=== PATIENT | female | born 1955 | race Caucasian/White ===

== ENCOUNTER 2017-08-20 10:46 | Outpatient (CLI) | payer OTHER ==
--- NOTE | 2017-08-21 12:49 | Mammography Report ---
DIGITAL SCREENING MAMMOGRAM: 08/20/2017 CLINICAL INDICATION: A 61-year-old with history of late childbearing for screening. The patient reports having had previous mammograms in [place], but cannot recall what facility per formed the examination. If records in your office indicate where these were performed, we would be h appy to try to obtain them for direct comparison. Otherwise, this will serve as a new baseline. TECHNIQUE: Routine CC and MLO projections were obtained of the breasts. FINDINGS: The breasts demonstrate heterogeneously dense fibroglandular parenchyma bilaterally. A fe w punctate, typically benign calcifications are present. No suspicious masses, clustered microcalcif ications, or regions of architectural distortion are identified. IMPRESSION: BENIGN FINDINGS. RECOMMENDATION: Routine annual screening unless otherwise clinically indicated. BIRADS CATEGORY 2 - BENIGN FINDINGS. STANDARD QUALIFYING STATEMENTS 1. This examination was reviewed with the aid of Computer-Aided Detection (CAD). 2. A negative or benign imaging report should not delay biopsy if clinically suspicious findings are present. Consider surgical consultation if warranted. More than 5% of cancers are not identified by i maging. 3. Dense breasts may obscure an underlying neoplasm. JOB #: [id number] EXT JOB #:[id number]
== END 2017-08-20 10:47 | disposition home or self-care (01) ==
LOC: DI.S 10:46
PROVIDERS: ATTEND Family Medicine
DX: Z12.31 Encounter for screening mammogram for malignant neoplasm of breast (principal)
CPT/HCPCS: 77067

== ENCOUNTER 2017-08-20 11:02 | Outpatient (CLI) | payer OTHER ==
--- NOTE | 2017-08-20 14:34 | XRAY Report ---
TWO VIEW LEFT CALCANEUS: 08/20/2017 CLINICAL INDICATION: Heel pain. FINDINGS: Frontal and lateral views of the left calcaneus demonstrate plantar calcaneal spurring. Th ere is no evidence of fracture. The joint spaces are unremarkable. IMPRESSION: PLANTAR CALCANEAL SPURRING. JOB #: [id number] EXT JOB #:[id number]
== END 2017-08-20 11:03 | disposition home or self-care (01) ==
LOC: DI.S 11:02
PROVIDERS: ATTEND Family Medicine
DX: M77.32 Calcaneal spur, left foot (principal)

== ENCOUNTER 2017-08-24 08:04 | Outpatient (CLI) | payer OTHER ==
--- NOTE | 2017-08-24 10:48 | Ultrasound Report ---
PELVIC ULTRASOUND: 08/24/2017 CLINICAL INDICATION: Postmenopausal bleeding. TECHNIQUE: Transabdominal pelvic ultrasound performed for global evaluation. Transvaginal pelvic ul trasound performed for detailed evaluation. Real-time scanning performed and static images obtained. FINDINGS: The uterus is anteverted, measuring 8.5 x 5.0 x 3.9 cm. The endometrial echo complex is t hickened, measuring 8 mm. There is a calcified fundal subserosal leiomyoma measuring 3.5 cm, and a p edunculated posterior subserosal leiomyoma measuring 5.9 cm. The right ovary measures 2.5 x 1.7 x 1.6 cm, and contains a 9-mm echogenic central focus. The left o vary measures 2.8 x 2.6 x 1.8 cm, and is unremarkable. No free fluid is present. IMPRESSION: THICKENED ENDOMETRIUM. LEIOMYOMAS, WITH A PEDUNCULATED 5.9 CM LEIOMYOMA IN THE CUL-DE-S AC. SMALL ECHOGENIC NODULE IN THE RIGHT OVARY, LIKELY REPRESENTING DYSTROPHIC CALCIFICATION. JOB #: [id number] EXT JOB #:[id number]
== END 2017-08-24 08:05 | disposition home or self-care (01) ==
LOC: DI 08:04
PROVIDERS: ATTEND Family Medicine
DX: R93.8 Abnormal findings on diagnostic imaging of other specified body structures (principal); D25.2 Subserosal leiomyoma of uterus; N83.9 Noninflammatory disorder of ovary, fallopian tube and broad ligament, unspecified
CPT/HCPCS: 76830; 76856

== ENCOUNTER 2018-08-10 17:56 | Emergency (ER) | payer OTHER ==
--- NOTE | 2018-08-10 18:42 | XRAY Report ---
Reason: Trauma Procedure Date: 08/10/2018 Accession Number: [id number] / [id number] Procedure: XR - Wrist 4 View LT CPT Code: FULL RESULT: EXAM: LEFT WRIST RADIOGRAPHY EXAM DATE: 08/10/2018 06:28 PM. CLINICAL HISTORY: Trauma. COMPARISON: None. TECHNIQUE: 4 views. FINDINGS: Bones: There is a nondisplaced fracture of the distal radius metaphysis/epiphysis with intra-articular extension. No additional fracture. Joints: Normal. No subluxation. Soft Tissues: Soft tissue swelling. IMPRESSION: Nondisplaced distal radius fracture. RADIA
--- NOTE | 2018-08-10 20:13 | XRAY Report ---
Reason: Trauma Procedure Date: 08/10/2018 Accession Number: [id number] / [id number] Procedure: XR - Hand 3 View LT CPT Code: FULL RESULT: EXAM: LEFT HAND RADIOGRAPHY EXAM DATE: 08/10/2018 07:55 PM. CLINICAL HISTORY: Trauma. COMPARISON: WRIST 4 VIEW LT 08/10/2018 6:18 PM. TECHNIQUE: 3 views. FINDINGS: Bones: No fracture or focal bony lesion. Joints: No evidence of dislocation. Soft Tissues: No unexpected soft tissue findings. IMPRESSION: No evidence of hand fracture or dislocation. Wrist findings are detailed separately. RADIA
[2018-08-10] MEDS ORDERED: IBUPROFEN 600 MG TABLET PO STA (20:32)
--- NOTE | 2018-08-10 20:46 | ED Physician Documentation ---
PD HPI UPPER EXT INJURY - Stated complaint Stated Complaint: L WRIST INJ/FALL - Chief complaint Chief Complaint: Ext Problem - History obtained from History obtained from: Patient - History of Present Illness Location: Left, Wrist, Hand Type of injury: Fall Where injury occurred: Home Timing - onset: How many hours ago (1) Timing - duration: Days (1) Timing - details: Abrupt onset, Still present Pain level max: 7 Pain level now: 7 Improved by: Rest Worsened by: Moving Associated symptoms: Swelling. No: Weakness, Numbness, Tingling, Discolored Contributing factors: No: Anticoagulated Similar symptoms before: Has not had sx before Recently seen: Not recently seen - Additonal information Additional information: 62-year-old female with no past medical or surgical history here with complain of left wrist pain after falling from a short stepladder while she was cleaning her house.Patient stated her hand was outstretched to protect the fall. Patient is right-hand dominant. Review of Systems Ten Systems: 10 systems reviewed and negative Constitutional: denies: Fever Cardiac: denies: Chest pain / pressure GI: denies: Abdominal Pain Musculoskeletal: reports: Extremity pain. denies: Neck pain, Back pain, Joint pain PD PAST MEDICAL HISTORY - Past Medical History Past Medical History: Yes - Past Surgical History Past Surgical History: Yes General: Other - Present Medications Home Medications: Ambulatory Orders Medication Instructions Recorded Confirmed Ibuprofen [Motrin] 600 mg PO Q6H PRN #30 tab 08/10/18 - Allergies Allergies/Adverse Reactions: Allergies Allergy/AdvReac Type Severity Reaction Status Date / Time No Known Drug Allergies Allergy Verified 08/10/18 18:05 - Social History Does the pt smoke?: No Smoking Status: Never smoker Does the pt drink ETOH?: Yes Does the pt have substance abuse?: Yes - Immunizations Immunizations are current?: Yes PD ED PE NORMAL - Vitals Vital signs reviewed: Yes - General General: Alert and oriented X 3, No acute distress, Well developed/nourished - HEENT HEENT: Moist mucous membranes - Neck Neck: Supple, no meningeal sign, No bony TTP - Cardiac Cardiac: RRR, Strong equal pulses - Respiratory Respiratory: No respiratory distress - Abdomen Abdomen: Soft, Non tender - Derm Derm: Normal color, Warm and dry - Extremities Extremities: No edema, Other (Left wrist radial aspect with mild tenderness to palpation. Left hand dorsal area below the thumb with ecchymosis and mild tenderness. Left hand full range of motion. +2 pulses. Capillary refill less than 2 seconds. Sensation intact. Strength 5/5.) - Neuro Neuro: Alert and oriented X 3, No motor deficit, No sensory deficit - Psych Psych: Normal mood, Normal affect Results - Vitals Vitals: Vital Signs - 24 hr 08/10/18 18:01 Temperature 36.8 C Heart Rate 84 Respiratory 16 Rate Blood Pressure 149/88 H O2 Saturation 98 Oxygen O2 Source Room air PD MEDICAL DECISION MAKING - ED course Complexity details: re-evaluated patient (2024Patient informed of x-ray results and plan of splinting. Stated once pain medication high dose Motrin only. 2119Evaluated radial gutter which is in place patient able to move her fingers. Capillary refill less than 2 seconds. We will discharged on Motrin and referral to orthopedic.), considered differential (Contusion, sprain, fracture, dislocation), d/w patient, d/w family Departure - Departure Disposition: 01 Home, Self Care Clinical Impression: Wrist fracture, left Qualifiers: Encounter type: initial encounter Fracture type: closed Qualified Code(s): S62.102A - Fracture of unspecified carpal bone, left wrist, initial encounter for closed fracture Condition: Stable Instructions: ED Fx Wrist General Follow-Up: Rosalba Rosas MD [Provider Admit Priv/Credential] - Prescriptions: Ibuprofen [Motrin] 600 mg PO Q6H PRN #30 tab PRN Reason: Pain Comments: Keep the splint on. Elevate. Ice pack tonight and tomorrow. Take the Motrin a s prescribed. Call the orthopedic doctor on Sunday for appointment this week. If worse return to the emergency room.
[2018-08-10 21:42] VITALS: BP 164/88
== END 2018-08-10 21:41 | disposition home or self-care (01) ==
LOC: ED 17:56
DX: S62.102A Fracture of unspecified carpal bone, left wrist, initial encounter for closed fracture (principal); W11.XXXA Fall on and from ladder, initial encounter; Y93.E9 Activity, other interior property and clothing maintenance; Y92.009 Unspecified place in unspecified non-institutional (private) residence as the place of occurrence of the external cause
CPT/HCPCS: 29125; 73110; 73130; 99283; A9270

== ENCOUNTER 2019-04-21 09:33 | Outpatient (CLI) | payer OTHER ==
--- NOTE | 2019-04-21 11:07 | Mammography Report ---
Reason: RT BREAST/AXILLA LUMP Procedure Date: 04/21/2019 Accession Number: [id number] / [id number] Procedure: LEVI - Diagnostic Dig Bilat CPT Code: FULL RESULT: EXAM: Diagnostic Dig Bilat DATE: 04/21/2019 10:32 AM CLINICAL HISTORY: Right breast/axilla lump. Diagnostic examination. TECHNIQUE: (B) - Bilateral CC and MLO views were obtained. Right spot MLO images are obtained. Focused right breast ultrasound is performed. COMPARISON: 08/20/2017. PARENCHYMAL PATTERN: (D) - The breast(s) demonstrate(s) heterogeneously dense fibroglandular parenchyma. FINDINGS: Corresponding to the palpable marker is a well-circumscribed 5 mm nodule which is only partially included in the [id number] on the obtained imaging. Physical examination is most compatible with ingrown hair or sebaceous cyst. A focused right breast ultrasound is performed for additional characterization. This demonstrates a immediately subcutaneous hypodense well-circumscribed lesion with internal echoes and increased through transmission with a clear tract to the skin surface, obstructed gland, most consistent with typically benign findings of a sebaceous cyst. There are no suspicious masses, calcifications, or areas of distortion. IMPRESSION: Benign findings. BI-RADS category 2. RECOMMENDATION: (ANNUAL) - Recommend routine annual screening mammography. BI-RADS CATEGORY: (2) - Benign Findings. STANDARD QUALIFYING STATEMENTS: 1. This examination was not reviewed with the aid of Computer-Aided Detection (CAD). 2. A negative or benign imaging report should not preclude biopsy if clinically suspicious findings are present. 3. Dense breasts may obscure an underlying neoplasm. 4. This examination was reviewed with the aid of 3D breast imaging (tomosynthesis).
== END 2019-04-21 09:34 | disposition home or self-care (01) ==
LOC: DI 09:33
PROVIDERS: ATTEND Nurse Practitioner Family
DX: N63.10 Unspecified lump in the right breast, unspecified quadrant (principal)
CPT/HCPCS: 76642; 77062; 77066

== ENCOUNTER 2020-05-10 13:13 | Outpatient (CLI) | payer OTHER ==
--- NOTE | 2020-05-10 16:32 | Ultrasound Report ---
PROCEDURE: Pelvic w/Transvaginal INDICATIONS: POSTMENOPAUSAL BLEEDING TECHNIQUE: Real-time scanning was performed of the pelvic organs, with image documentation. Additional endovagi nal scanning was necessary due to incomplete visualization of the adnexal and endometrial structures by transabdominal scanning. COMPARISON: Pelvic ultrasound 08/24/2017 FINDINGS: Transabdominal scanning: Limited scanning through the kidneys shows no hydronephrosis. No pathologi c free abdominal or pelvic fluid. Endovaginal scanning: Uterus: Uterus is normal in size at 9.4 x 5.7 x 6.9 cm. The endometrium measures 26 mm in combined thickness, compared to 8 mm on prior exam. Within the fundal anterior location subserosal location th ere is a 5.4 x 4.7 x 4.7 focus of heterogeneous echogenicity previously measuring 3.2 x 3.5 x 3.3 cm. In the post material region there is a pedunculated focus similar in appearance measuring 5.9 x 4.4 x 3.3 cm compared to 5.9 x 4.4 x 3.5 cm. Ovaries: Right ovary measures 25 x 19 x 24 mm. Left ovary measures 24 x 15 x 15 mm. IMPRESSION: 1. Heterogeneous low side within the uterus with the fundal focus increased in size. Overall appearan ce is suggestive of fibroids. 2. Thickened endometrium as above, much greater than expected for post menopausal state. Neoplasm can not be excluded. Further [employer] follow-up is recommended. Reviewed by: Niki Rogers MD on 05/10/2020 4:30 PM PDT Approved by: Niki Rogers MD on 05/10/2020 4:30 PM PDT Station ID: [id number]
== END 2020-05-10 13:14 | disposition home or self-care (01) ==
LOC: DI 13:13
PROVIDERS: ATTEND Nurse Practitioner Family
DX: R93.89 Abnormal findings on diagnostic imaging of other specified body structures (principal)
CPT/HCPCS: 76830; 76856

== ENCOUNTER 2020-05-13 10:39 | Outpatient (CLI) | payer OTHER ==
[2020-05-13 11:07] LABS: HB2 TOTAL 14.3 g/dL; HEMOGLOBIN A1C 0.62 g/dL; HEMOGLOBIN A1C % 6.1 % (4.6-6.2)
== END 2020-05-13 10:40 | disposition home or self-care (01) ==
LOC: LAB 10:39
PROVIDERS: ATTEND Obstetrics & Gynecology
DX: N85.00 Endometrial hyperplasia, unspecified (principal)
CPT/HCPCS: 36415; 83036

== ENCOUNTER 2020-05-29 16:41 | Outpatient (CLI) | payer OTHER | END 2020-05-29 16:42 | disposition home or self-care (01) | LOC: LAB 16:41 | PROVIDERS: ATTEND Obstetrics & Gynecology | DX: N85.02 Endometrial intraepithelial neoplasia [EIN] (principal) | CPT/HCPCS: 88305 ==

== ENCOUNTER 2020-07-12 10:07 | Outpatient (CLI) | payer OTHER ==
[2020-07-12 10:49] LABS: BASOPHILS % (AUTO) 0.5 %; EOSINOPHILS # (AUTO) 0.1 10^3/uL (0.0-0.7); EOSINOPHILS % (AUTO) 1.9 %; HGB - HEMOGLOBIN 13.6 g/dL (12.0-16.0); LYMPHOCYTES # (AUTO) 2.1 10^3/uL (1.5-3.5); LYMPHOCYTES % (AUTO) 27.4 %; MEAN CORPUSCULAR HEMOGLOBIN 30.2 pg (27.0-31.0); MEAN CORPUSCULAR HGB CONC 33.3 g/dL (32.0-36.0); MEAN CORPUSCULAR VOLUME 90.9 fL (81.0-99.0); MEAN PLATELET VOLUME 8.7 fL (7.9-10.8); MONOCYTES # (AUTO) 0.5 10^3/uL (0.0-1.0); MONOCYTES % (AUTO) 6.1 %; NEUTROPHILS # (AUTO) 4.8 10^3/uL (1.5-6.6); NEUTROPHILS % (AUTO) 63.3 %; PLT - PLATELET COUNT 296 10^3/uL (130-450); RED CELL DISTRIBUTION WIDTH 13.1 % (12.0-15.0); WHITE BLOOD COUNT 7.6 x10^3/uL (4.8-10.8)
[2020-07-12 11:03] LABS: ALBUMIN/GLOBULIN RATIO 1.2 (1.0-2.2); BILIRUBIN,TOTAL 0.6 mg/dL (0.2-1.0); CALCIUM 9.5 mg/dL (8.5-10.3); CREATININE 0.8 mg/dL (0.4-1.0); TOTAL PROTEIN 7.4 g/dL (6.7-8.2)
== END 2020-07-12 10:08 | disposition home or self-care (01) ==
LOC: LAB 10:07
PROVIDERS: ATTEND Obstetrics & Gynecology
DX: Z20.828 Contact with and (suspected) exposure to other viral communicable diseases (principal); N95.0 Postmenopausal bleeding; N85.2 Hypertrophy of uterus
CPT/HCPCS: 36415; 80053; 85025

== ENCOUNTER 2020-07-15 06:39 | Day surgery (SDC) | payer OTHER ==
[~2020-07-15 06:39] MED LIST: CEFAZOLIN SODIUM IN 0.9 % NACL 2 GM/100 ML BAG IV ONE
[2020-07-15] MEDS ORDERED: SILVER NITRATE APPLICATOR TOP ONE (07:00)
[2020-07-15] MEDS ORDERED: BUPIVACAINE 0.25%-EPI 1:200000 PF 30 ML VIAL ONE (07:00)
[2020-07-15] MEDS ORDERED: LACTATED RINGERS 1,000 ML IV ONE ×2 (07:16→08:50)
[2020-07-15] MEDS ORDERED: ATROPINE ABBOJECT 1 MG/10 ML SYRINGE IVP PRN (07:25)
[2020-07-15] MEDS ORDERED: ePHEDrine 50 MG/ML VIAL IVP PRN (07:25)
[2020-07-15] MEDS ORDERED: NALOXONE 0.4 MG/ML VIAL IVP PRN (07:25)
[2020-07-15] MEDS ORDERED: MORPHINE 2 MG/ML CARPUJECT IVP PRN (07:25)
[2020-07-15] MEDS ORDERED: ONDANSETRON 4 MG/2 ML VIAL IVP PRN ×2 (07:25→09:02)
[2020-07-15] MEDS ORDERED: fentaNYL 100 MCG/2 ML VIAL IVP PRN (07:25)
[2020-07-15] MEDS ORDERED: METOCLOPRAMIDE 10 MG/2 ML VIAL IVP PRN (07:25)
[2020-07-15] MEDS ORDERED: HYDROmorphone 0.5 MG/0.5 ML SYRINGE IVP PRN (07:25)
--- NOTE | 2020-07-15 07:25 | ANESTHESIA ---
Pre-Anesthesia VS, & Labs - Diagnosis post menopausal bleeding, thickened endometrium - Procedure myosure hysteroscopy/D&C Vital Signs: Temp Pulse Resp BP Pulse Ox 36.2 C L 90 18 164/83 H 96 07/15/20 06:40 07/15/20 06:40 07/15/20 06:40 07/15/20 06:40 07/15/20 06:40 Height: 5 ft 5 in Weight (kg): 100.3 kg Body Mass Index: 36.8 BMI Classification: Obese - NPO >8 hours - Is Patient ?: No - Lab Results Current Lab Results: Laboratory Tests 07/15/20 07:12: POC Whole Bld Glucose 116 H Lab results reviewed: Yes Home Medications and Allergies Home Medications: Ambulatory Orders Loratadine [Claritin] 10 mg PO DAILY 07/07/20 Naproxen Sodium [Aleve] 220 mg PO ONCE PRN 07/07/20 Loratadine [Claritin] 10 mg PO DAILY 07/07/20 Naproxen Sodium [Aleve] 220 mg PO ONCE PRN 07/07/20 Allergies/Adverse Reactions: Allergies Allergy/AdvReac Type Severity Reaction Status Date / Time No Known Drug Allergies Allergy Verified 08/10/18 18:05 Anes History & Medical History - Anesthetic History Anesthesia Complications: reports: No previous complications Family history of Anesthesia Complications: Denies Family history of Malignant Hyperthermia: Denies - Medical History Cardiovascular: reports: High cholesterol Pulmonary: reports: None Gastrointestinal: reports: GERD (controlled w meds) Urinary: reports: None Musculoskeletal: reports: Chronic back pain Endocrine/Autoimmune: reports: None, Other ("pre-diabetes" per pt. glucose 119 this am) Skin: reports: None Smoking Status: Never smoker Psychosocial: reports: No issues indicated History of Cancer?: No Other Past Medical History: oral surgery under sedation - Surgical History General: Colonoscopy Exam General: Alert, Oriented x3, Cooperative Dental: WNL Mouth Openin Fingerbreadth Neck Mobility: Normal Mallampati classification: II Thyromental Distance: 4-6 cm Respiratory: Lungs clear, Normal breath sounds, No respiratory distress Cardiovascular: Regular rate Neurological: Normal speech Mental/Cognitive Status: Alert/Oriented X3, Normal for patient Cognitive Status: Within normal limits Plan Anesthesia Type: General Consent for Procedure(s) Verified and Reviewed: Yes Code Status: Attempt Resuscitation ASA classification: 2-Mild systemic disease Is this case an emergency?: No
[2020-07-15] MEDS ORDERED: fentaNYL 100 MCG/2 ML VIAL IVP ONE (07:30)
[2020-07-15] MEDS ORDERED: DEXAMETHASONE 4 MG/ML VIAL IVP ONE (07:30)
[2020-07-15] MEDS ORDERED: PROPOFOL 200 MG/20 ML VIAL IVP ONE (07:30)
[2020-07-15] MEDS ORDERED: ONDANSETRON 4 MG/2 ML VIAL IVP ONE (07:30)
[2020-07-15] MEDS ORDERED: LIDOCAINE-MPF 2% 5 ML VIAL IM ONE (07:30)
[2020-07-15] MEDS ORDERED: LACTATED RINGERS 1,000 ML IV SCH (08:00)
[2020-07-15] MEDS ORDERED: BUPIVACAINE 0.25%-EPI 1:200000 PF 30 ML VIAL SUBQ ONE ×2 (08:08→08:22)
--- NOTE | 2020-07-15 08:55 | OPERATIVE REPORT ---
Operative Report - General Procedure Date: 07/15/20 Planned Procedure: thickened endometrium 2.5 cm Procedure Performed: Dilitation, Hysterscopy with removal of endometria polyp Post Op Diagnosis: Endometrial polyp - Procedure Note Primary Surgeon: Ricky Chandler MD Anesthesia Provider: Gian Mojica MD Anesthesia Technique: General LMA Pathology: endometrial polyp IV Fluids (mL): 600 Estimated Blood Loss (mL): 5 Complications: none
[2020-07-15] MEDS ORDERED: DOXYCYCLINE 100 MG TABLET PO STA (09:02)
[2020-07-15] MEDS ORDERED: oxyCODONE 5 MG TABLET PO PRN (09:02)
[2020-07-15] MEDS ORDERED: LORazepam 2 MG/ML VIAL IVP PRN (09:02)
[2020-07-15] MEDS ORDERED: KETOROLAC 30 MG/ML VIAL IVP PRN (09:03)
[2020-07-15] MEDS ORDERED: KETOROLAC 30 MG/ML VIAL ONE (09:12)
[2020-07-15 09:52] VITALS: BP 127/71
--- NOTE | 2020-07-15 11:08 | ANESTHESIA POST OP EVALUATION ---
Anesthesia Post Eval - Post Anesthesia Eval Vitals: Last Vital Signs Temp 36.2 C L 07/15/20 09:50 Pulse 76 07/15/20 09:50 Resp 16 07/15/20 09:50 BP 127/71 07/15/20 09:50 Pulse Ox 98 07/15/20 09:50 CV Function Including HR & BP: positive: Stable Pain Control: positive: Satisfactory Nausea & Vomiting: positive: Negative Mental Status: positive: Baseline Respiratory Status: Airway Patent Hydration Status: Satisfactory Anesthesia Complications: positive: None
--- NOTE | 2020-07-15 12:26 | OPERATIVE REPORT ---
DATE OF SERVICE: 07/15/2020 Physician: Ricky Chandler MD PREOPERATIVE DIAGNOSIS: A 2.5 cm thickened endometrium; endometrial biopsy with evidence of hyperpla radha. POSTOPERATIVE DIAGNOSIS: Endometrial polyp. PROCEDURE PERFORMED: Hysteroscopy with resection of endometrial polyp. SURGEON: Ricky Chandler MD ANESTHESIOLOGIST: Rigoberto Mojica MD ANESTHESIA: General via LMA. ESTIMATED BLOOD LOSS: 5 mL. IV FLUIDS: 600 mL. DEFICIT: 530 mL. OPERATIVE FINDINGS: Upon entering the endometrial cavity, the cavity showed evidence of a very large endometrial polyp. Upon resection this showed the endometrial cavity to be clear at this point. Th e uterus sounded to 8 cm. DESCRIPTION OF PROCEDURE:. Following adequate general anesthesia via LMA, the patient was placed in the dorsal lithotomy position. Pelvic examination under anesthesia was unrewarding secondary to abdo guzman wall thickness. At this point, she was prepped and draped in the usual fashion. A timeout was performed. A speculum was placed in the vagina, there was some difficulty, was able to finally visu erick the cervix, this was grasped with a single-tooth tenaculum. Uterus was then sounded to 8 cm, a t this point dilated to 8 mm. The hysteroscope was then placed and the entire endometrial cavity chayo eared to be filled with a polyp. At this point, a MyoSure LITE was used to resect the entire polyp a ll the way to the uterine wall. The endometrial cavity appeared to be clear. Both ostia were visual ized. At this point, the procedure was ended. The patient tolerated the procedure well and was take n to recovery in stable condition. Sponge and needle counts were correct. TD: 07/15/2020 09:11
== END 2020-07-15 06:40 | disposition home or self-care (01) ==
LOC: SDS 06:39
PROVIDERS: ATTEND Obstetrics & Gynecology
PROC: 0UB98ZZ Excision of Uterus, Via Natural or Artificial Opening Endoscopic (ICD-10-PCS; principal; 2020-07-15 07:30)
DX: N84.0 Polyp of corpus uteri (principal); K21.9 Gastro-esophageal reflux disease without esophagitis; Z87.891 Personal history of nicotine dependence; Z79.899 Other long term (current) drug therapy; Z86.79 Personal history of other diseases of the circulatory system
CPT/HCPCS: 58558; J0690; J7120

== ENCOUNTER 2020-09-16 18:23 | Outpatient (CLI) | payer OTHER | END 2020-09-16 18:24 | disposition home or self-care (01) | LOC: COV 18:23 | PROVIDERS: ATTEND Obstetrics & Gynecology | DX: Z01.812 Encounter for preprocedural laboratory examination (principal); N85.02 Endometrial intraepithelial neoplasia [EIN]; Z20.828 Contact with and (suspected) exposure to other viral communicable diseases ==

== ENCOUNTER 2020-09-20 09:45 | Outpatient (CLI) | payer OTHER | END 2020-09-20 09:46 | disposition home or self-care (01) | LOC: LAB 09:45 | PROVIDERS: ATTEND Obstetrics & Gynecology | DX: Z01.818 Encounter for other preprocedural examination (principal); N85.02 Endometrial intraepithelial neoplasia [EIN] | CPT/HCPCS: 36415; 86850; 86900; 86901; 86920; 93005 ==

== ENCOUNTER 2020-09-22 06:26 | Day surgery (SDC) | payer OTHER ==
[~2020-09-22 06:26] MED LIST changes: +ACETAMINOPHEN 1,000 MG/100 ML 100 ML IV ONE; -CEFAZOLIN SODIUM IN 0.9 % NACL 2 GM/100 ML BAG IV ONE; +CELECOXIB 100 MG CAPSULE PO ONE; +GABAPENTIN 400 MG CAPSULE ONE; +ceFAZolin 2 GM/50 ML 2 GM/50 ML BAG IV ONE
[2020-09-22] MEDS ORDERED: LACTATED RINGERS 1,000 ML IV ONE (06:50)
[2020-09-22] MEDS ORDERED: MIDAZOLAM 2 MG/2 ML VIAL ONE (07:06)
[2020-09-22] MEDS ORDERED: KETAMINE 500 MG/10 ML VIAL ONE (07:06)
[2020-09-22] MEDS ORDERED: fentaNYL 100 MCG/2 ML VIAL ONE ×2 (07:06→08:46)
[2020-09-22] MEDS ORDERED: LIDOCAINE-MPF 2% 5 ML VIAL ONE ×3 (07:08→10:22)
[2020-09-22] MEDS ORDERED: DEXAMETHASONE 10 MG/ML VIAL ONE (07:08)
[2020-09-22] MEDS ORDERED: ePHEDrine 50 MG/ML VIAL IVP ONE (07:09)
[2020-09-22] MEDS ORDERED: MAGNESIUM SULFATE 1 GM/2 ML VIAL ONE (07:09)
[2020-09-22] MEDS ORDERED: SODIUM CHLORIDE 0.9% 10 ML ONE (07:09)
[2020-09-22] MEDS ORDERED: KETOROLAC 30 MG/ML VIAL ONE (07:09)
[2020-09-22] MEDS ORDERED: SUGAMMADEX 200 MG/2 ML VIAL IVP ONE (07:09)
[2020-09-22] MEDS ORDERED: ONDANSETRON 4 MG/2 ML VIAL ONE (07:10)
--- NOTE | 2020-09-22 07:12 | ANESTHESIA ---
Pre-Anesthesia VS, & Labs - Diagnosis endometrial hyperplagia - Procedure lap assisted vaginal hysterectomy, possible salphigectomy, anterioposterior repair Vital Signs: Temp Pulse Resp BP Pulse Ox 36.4 C L 82 18 149/86 H 98 09/22/20 06:30 09/22/20 06:30 09/22/20 06:30 09/22/20 06:30 09/22/20 06:30 Height: 5 ft 5 in Weight (kg): 101.9 kg Body Mass Index: 37.3 BMI Classification: Obese - NPO >8 hours - Is Patient ?: No - Lab Results Current Lab Results: Laboratory Tests 09/22/20 06:46: POC Whole Bld Glucose 118 H Home Medications and Allergies Home Medications: Ambulatory Orders Calcium Carbonate [Tums (Calcium Carbonate 500mg)] 500 mg PO Q4-6H PRN 09/10/20 Losartan Potassium 100 mg PO DAILY 09/10/20 Loratadine [Claritin] 10 mg PO DAILY 07/07/20 Naproxen Sodium [Aleve] 220 mg PO ONCE PRN 07/07/20 Calcium Carbonate [Tums (Calcium Carbonate 500mg)] 500 mg PO Q4-6H PRN 09/10/20 Losartan Potassium 100 mg PO DAILY 09/10/20 Allergies/Adverse Reactions: Allergies Allergy/AdvReac Type Severity Reaction Status Date / Time No Known Drug Allergies Allergy Verified 08/10/18 18:05 Anes History & Medical History - Anesthetic History Anesthesia Complications: reports: No previous complications - Medical History Cardiovascular: reports: Hypertension, High cholesterol Pulmonary: reports: None Gastrointestinal: reports: GERD Urinary: reports: None Musculoskeletal: reports: Chronic back pain Endocrine/Autoimmune: reports: Other Skin: reports: None Smoking Status: Never smoker - Surgical History General: Colonoscopy Gynecologic: Dilation and currettage, Other Exam General: Alert Dental: WNL Neck Mobility: Normal Mallampati classification: III Thyromental Distance: greater than 6 cm Respiratory: Lungs clear Cardiovascular: Regular rate Plan Anesthesia Type: General Consent for Procedure(s) Verified and Reviewed: Yes Code Status: Attempt Resuscitation ASA classification: 2-Mild systemic disease Is this case an emergency?: No
[2020-09-22] MEDS ORDERED: ROCURONIUM 50 MG/5 ML VIAL ONE (07:13)
[2020-09-22] MEDS ORDERED: PROPOFOL 500 MG/50 ML 500 MG/50 ML VIAL ONE ×3 (07:16→10:17)
[2020-09-22] MEDS ORDERED: PHENAZOPYRIDINE 100 MG TABLET PO ONE (07:42)
[2020-09-22] MEDS ORDERED: BUPIVACAINE 0.25% PF 30 ML VIAL ONE (07:45)
[2020-09-22] MEDS ORDERED: BUPIVACAINE 0.5%-EPI 1:200000 PF 30 ML VIAL ONE ×2 (07:45→07:58)
[2020-09-22] MEDS ORDERED: BUPIVACAINE 0.5% PF 30 ML VIAL ONE (07:45)
[2020-09-22] MEDS ORDERED: LIDOCAINE 2% URO-JET 5 ML SYRINGE UR ONE (07:46)
[2020-09-22] MEDS ORDERED: ESTROGENS, CONJUGATED CREAM 30 GM TUBE ONE (07:46)
[2020-09-22] MEDS ORDERED: PHENAZOPYRIDINE 100 MG TABLET PO SCH (08:00)
[2020-09-22] MEDS ORDERED: BUPIVACAINE 0.5% PF 30 ML VIAL SUBQ ONE (08:31)
[2020-09-22] MEDS ORDERED: BUPIVACAINE 0.5% PF 30 ML VIAL INFIL ONE ×2 (08:35→12:39)
[2020-09-22] MEDS ORDERED: LABETALOL 5 MG/1 ML 20 ML MDV ONE (09:43)
[2020-09-22] MEDS ORDERED: HYDROmorphone 1 MG/ML CARPUJECT ONE (10:55)
[2020-09-22] MEDS ORDERED: PROPOFOL 200 MG/20 ML VIAL IVP ONE ×3 (11:32→12:45)
[2020-09-22] MEDS ORDERED: ESTROGENS, CONJUGATED CREAM 30 GM TUBE VG ONE ×2 (12:05)
[2020-09-22] MEDS ORDERED: ceFAZolin 1 GM VIAL ONE ×2 (12:59)
[2020-09-22] MEDS ORDERED: ACETAMINOPHEN 1,000 MG/100 ML 100 ML IV ONE (13:08)
[2020-09-22] MEDS ORDERED: LACTATED RINGERS 400 ML IV ONE (13:37)
[2020-09-22] MEDS ORDERED: LACTATED RINGERS 600 ML IV ONE (13:46)
[2020-09-22] MEDS ORDERED: ONDANSETRON 4 MG/2 ML VIAL IVP PRN ×2 (13:50→14:07)
[2020-09-22] MEDS ORDERED: LORazepam 2 MG/ML VIAL IVP PRN (13:50)
[2020-09-22] MEDS ORDERED: oxyCODONE 5 MG TABLET PO PRN (13:50)
[2020-09-22] MEDS ORDERED: HYDROmorphone 0.5 MG/0.5 ML SYRINGE IVP PRN ×2 (13:50→14:07)
--- NOTE | 2020-09-22 14:05 | OPERATIVE REPORT ---
Operative Report - General Procedure Date: 09/22/20 Planned Procedure: TLH BSO, A&P Cysto Pre-Op Diagnosis: ENDOMETRIAL HYPERPALSIA WITHOUT ATYPIA, CYSTOCELE AND RECTOCELE, FIBROID UT Procedure Performed: SAME Post Op Diagnosis: SAME - Procedure Note Primary Surgeon: GURU MIRANDA MD Secondary Surgeon: MICHELLE SPARROW MD Anesthesia Technique: General ET tube Pathology: UTERUS WITH BOTH TUBES AND OVARIES. PELVIC WASHINGS IV Fluids (mL): 2,700 Estimated Blood Loss (mL): 200 Urine Output (mL): 600 Findings: NODULARITY ON THE RIGHT OVARY
[2020-09-22] MEDS ORDERED: ePHEDrine 50 MG/ML VIAL IVP PRN (14:07)
[2020-09-22] MEDS ORDERED: fentaNYL 100 MCG/2 ML VIAL IVP PRN (14:07)
[2020-09-22] MEDS ORDERED: NALOXONE 0.4 MG/ML VIAL IVP PRN (14:07)
[2020-09-22] MEDS ORDERED: METOCLOPRAMIDE 10 MG/2 ML VIAL IVP PRN (14:07)
[2020-09-22] MEDS ORDERED: ATROPINE ABBOJECT 1 MG/10 ML SYRINGE IVP PRN (14:07)
[2020-09-22] MEDS ORDERED: MORPHINE 2 MG/ML CARPUJECT IVP PRN (14:07)
[2020-09-22] MEDS ORDERED: LACTATED RINGERS 1,000 ML IV SCH (15:00)
--- NOTE | 2020-09-22 15:01 | ANESTHESIA POST OP EVALUATION ---
Anesthesia Post Eval - Post Anesthesia Eval Vitals: Last Vital Signs Temp 36.4 C L 09/22/20 14:55 Pulse 94 09/22/20 14:55 Resp 13 09/22/20 14:55 BP 120/63 09/22/20 14:55 Pulse Ox 97 09/22/20 14:55 CV Function Including HR & BP: positive: Stable Pain Control: positive: Satisfactory Nausea & Vomiting: positive: Negative Mental Status: positive: Patient Participates Respiratory Status: Airway Patent Hydration Status: Satisfactory Anesthesia Complications: positive: None
[2020-09-22] MEDS ORDERED: LACTATED RINGERS 950 ML IV ONE (15:19)
[2020-09-22] MEDS: PANTOPRAZOLE 40 MG TABLET PO SCH (16:46)
[2020-09-22] MEDS: ACETAMINOPHEN 500 MG TABLET PO SCH ×2 (16:46→21:49)
--- NOTE | 2020-09-22 16:51 | OPERATIVE REPORT ---
DATE OF SERVICE: 09/22/2020 Physician: Ricky Chandler MD PREOPERATIVE DIAGNOSES 1. Endometrial hyperplasia without atypia. 2. Cystocele, and symptomatic rectocele. 3. Fibroid uterus. POSTOPERATIVE DIAGNOSES 1. Endometrial hyperplasia without atypia. 2. Cystocele, and symptomatic rectocele. 3. Fibroid uterus. PROCEDURES PERFORMED: Total laparoscopic hysterectomy with bilateral salpingo- oophorectomy, pelvic washings, and anterior-posterior repair with cystoscopy. SURGEON: Ricky Chandler MD PIPE FITTER AMMONIA: Kelly Joseph MD ANESTHESIA: General via endotracheal tube. ANESTHESIA PROVIDER: Daksha Green. IV FLUIDS: 2700 mL. ESTIMATED BLOOD LOSS: 200 mL. URINE OUTPUT: 600 mL. FINDINGS: Upon entering the abdominal cavity, there was evidence of adhesions to the colon and the left pelvic sidewall. The tube on the left hand side appeared without disease. The right ovary showed evidence of multiple excrescences on the external portion of the ovary. The right tube appeared to be normal. She had large fibroids in the uterus. She had one left parametrial fibroid. She had a mild cystocele, but a rather large rectocele. OPERATIVE PROCEDURE: Following adequate endotracheal anesthesia, the patient was placed in the dorsal lithotomy position in [facility]. Pelvic examination was performed in which the cervix felt somewhat small. With her previous hysteroscopy it was very difficult to get a hold of her cervix, as it resided high in the pelvic cavity. At this point, she was prepped and draped in the usual fashion. A timeout was performed. A speculum was then placed in the vagina. The cervix was visualized with some difficulty. At this point, it was grasped with a single-tooth tenaculum and was dilated to size 7 mm and then a 3 cm icing coater uterine manipulator was placed in the cervix. Both balloons were insufflated. The tenon machine operator's gloves were changed and then a stab wound was made in the subumbilical area with a #11 blade following local anesthesia with 0.5% Marcaine. At this point, a trocar was placed atraumatically and then 2 trocars were placed, both in the left and right lower quadrants. These were done following local anesthesia with 0.5% Marcaine with epinephrine as well as a #10 blade. The pelvis was inspected. There was no evidence of any injury at insertion site. The tubes and ovaries were inspected. The left ovary appeared to be unremarkable. The right ovary was somewhat concerning with the nodularity on the surface. At this point, it was irrigated and aspirated for cytology. Then, utilizing LigaSure, the infundibulopelvic ligament was cauterized, and divided. The ovary and tube were removed in total. The incision in the right lower quadrant was extended and an 11 mm port was introduced. An EndoCatch bag was introduced, and the right adnexa was placed in the EndoCatch bag. Care was taken to minimize any distribution of the potential cells. This was then brought through the abdominal wall intact. At this point, this was sent separately for pathologic evaluation. The procedure was continued. The anterior leaf of the broad ligament on the right-hand side was opened. The round ligament was doubly cauterized and transected with the LigaSure. This was carried down to the internal os of the cervix. The posterior leaf of the broad ligament was also cauterized and transected with the LigaSure. The uterine vessels were cauterized, but not transected. Attention was turned to the left hand-side and, because the bowel was on that pelvic sidewall, the broad ligament was opened anteriorly with division of the round ligament and then dissected down into the retroperitoneal space. The ureter was localized, identified, and then noted to be out of the operative field. At this point, the infundibulopelvic ligament was cauterized and transected with the LigaSure; this was carried down to the posterior leaf of the broad ligament. Care was taken to try and stay as close to the uterus as possible to minimize injury to the ureter. A fibroid was encountered in the lower uterine segment, which appeared to come off of the uterus, a little above the cervix. This was dissected out utilizing the LigaSure as well as Harmonic scalpel. The fibroid was grasped with a laparoscopic single-tooth tenaculum and manipulated to free it from its attaching structures. It was then amputated from the uterus. There was some oozing from the amputation site. The uterine vessels were then cauterized and transected on the left-hand side. Care was taken to stay as close to the uterus as possible. This helped with some of the bleeding that was occurring from the left side of the uterus. A bladder flap was developed, and this was pushed off the lower uterine segment. The uterine vessels on the right-hand side were then cauterized and transected. Care was taken to bring them away from the anvil of the icing coater. The Harmonic scalpel was then used to enter the anterior vagina and then brought around the right-hand side of the uterus to the posterior uterus. This was carried as far as possible and approached the uterosacral ligament on the left-hand side. At this point, Dr. Joseph, opened the vagina on the left-hand side with the Harmonic scalpel. The uterus was then brought out through the incision. The fibroid, which was attached to the left-hand side, was also brought out through the vagina. The area was inspected. No active bleeding was noted. At this point, the apex of the vagina was closed using a running stitch of V-Loc suture. The area was inspected, there was little to no bleeding. At this point, Surgicel was then placed on the incision sites. The area appeared to be dry at this time. At this point, the right lower quadrant trocar site was closed utilizing a Gonzalo-Tino, and there was evidence of good approximation of the incision. Attention was turned to the pelvis. Cystoscopy was performed. There was evidence of good exuberant flow of urine through both ureteral orifices. The anterior-posterior repair was then commenced. Because the vagina resided high in the pelvic cavity, it was desired to start about 2 cm from the urethra with the skin incision vertical and then undermining with Metzenbaum scissors. Two sutures of 0 Vicryl were then used to plicate the vesicovaginal fascia, and then the vagina was then closed utilizing ystwhx-ak-ikcayd of 2-0 Vicryl. Good hemostasis was observed. At this point, an incision was made over the perineum. The perineum was noted to be fairly tight, so it was decided not to take a wedge out. The posterior vaginal mucosa was injected with 0.5% Marcaine with epinephrine, and then Metzenbaum scissors were used to undermine as well as divide the posterior vagina in the midline. The edges were grasped with Allis- Adairs. The rectum was pushed free of the posterior vaginal mucosa all the way to the lateral sandhu and then sutures of 0 Vicryl were then used to plicate the vesicovaginal fascia. This showed evidence of a good closure. There was some oozing that was noted. This eventually was taken care of by closing the posterior rectovaginal fascia. The excess vaginal mucosa was trimmed and then closed utilizing mymbty-ln-hohygl of 2-0 Vicryl. The repair appeared to be sufficient at this time, a rectal examination was performed to ensure that there were no sutures which penetrated the rectal mucosa, none were palpated. The tenon machine operator's gloves were changed and following this, the vaginal packing was utilized to tamponade the anterior and posterior vaginal mucosal areas. The cystoscopy was repeated. There was evidence of excellent urine flow through both ureteral orifices. There was no evidence of sutures through the bladder mucosa. The patient tolerated the procedure well and was taken to recovery in stable condition. Sponge and needle counts were correct. Throughout the entire procedure Dr Joseph was instrumental in the performance of the hysterectomy. TD: 09/22/2020 14:31 j MARTINA
[2020-09-22] MEDS: KETOROLAC 15 MG/ML VIAL IVP PRN (19:20)
[2020-09-22] MEDS: DOCUSATE SODIUM 100 MG CAPSULE PO SCH (19:52)
[2020-09-23] MEDS: KETOROLAC 15 MG/ML VIAL IVP PRN ×2 (04:28→12:19)
[2020-09-23] MEDS: PANTOPRAZOLE 40 MG TABLET PO SCH (06:18)
[2020-09-23] MEDS: ACETAMINOPHEN 500 MG TABLET PO SCH (06:20)
[2020-09-23] MEDS: DOCUSATE SODIUM 100 MG CAPSULE PO SCH (08:31)
[2020-09-23] MEDS ORDERED: LORATADINE 10 MG TABLET PO SCH (09:00)
[2020-09-23 12:12] VITALS: BP 142/68
== END 2020-09-23 13:45 | disposition home or self-care (01) ==
LOC: SDS 06:26 → MS2 15:13 → SDS 09-23 13:45
PROVIDERS: ATTEND Obstetrics & Gynecology
PROC: 0UT7FZZ Resection of Bilateral Fallopian Tubes, Via Natural or Artificial Opening With Percutaneous Endoscopic Assistance (ICD-10-PCS; 2020-09-22)
PROC: 0UT9FZZ Resection of Uterus, Via Natural or Artificial Opening With Percutaneous Endoscopic Assistance (ICD-10-PCS; principal; 2020-09-22 07:30)
PROC: 0UT2FZZ Resection of Bilateral Ovaries, Via Natural or Artificial Opening With Percutaneous Endoscopic Assistance (ICD-10-PCS; 2020-09-22 07:30)
DX: D25.1 Intramural leiomyoma of uterus (principal); N84.0 Polyp of corpus uteri; N80.0 Endometriosis of uterus; N83.8 Other noninflammatory disorders of ovary, fallopian tube and broad ligament; D27.0 Benign neoplasm of right ovary; N88.8 Other specified noninflammatory disorders of cervix uteri; K62.3 Rectal prolapse; N81.10 Cystocele, unspecified; I10 Essential (primary) hypertension; K21.9 Gastro-esophageal reflux disease without esophagitis; E78.00 Pure hypercholesterolemia, unspecified; G89.29 Other chronic pain; M54.9 Dorsalgia, unspecified; E66.9 Obesity, unspecified; Z68.37 Body mass index [BMI] 37.0-37.9, adult; Z87.891 Personal history of nicotine dependence
CPT/HCPCS: 57260; 58552; A9270; J0131; J0690; J1170; J7120

== ENCOUNTER 2020-11-17 07:32 | Outpatient (CLI) | payer OTHER ==
--- NOTE | 2020-11-17 08:57 | Ultrasound Report ---
PROCEDURE: Abdomen Limited INDICATIONS: ALT LEVEL RAISED TECHNIQUE: Real-time focused scanning was performed of the abdomen, with image documentation. COMPARISON: None FINDINGS: Multiple gallstones are present in the gallbladder, the largest of which measures 1.3 cm i n diameter. No gallbladder wall thickening or pain on examination. Diffuse increased echogenicity of the liver likely represents hepatic steatosis. No dilated ducts. Common bile duct measures 5 mm. Common hepatic duct measures 2.5 mm. Visualized portions of the pancreas are unremarkable. No right hydronephrosis. Right kidney measures 11.6 cm. IMPRESSION: 1. Cholelithiasis without evidence of acute cholecystitis. 2. Hepatic steatosis. Reviewed by: Jorden Groves MD on 11/17/2020 8:56 AM PST Approved by: Jorden Groves MD on 11/17/2020 8:56 AM PST Station ID: [id number]
== END 2020-11-17 07:33 | disposition home or self-care (01) ==
LOC: DI 07:32
PROVIDERS: ATTEND Nurse Practitioner Family
DX: R74.01 Elevation of levels of liver transaminase levels (principal); K80.20 Calculus of gallbladder without cholecystitis without obstruction; K76.0 Fatty (change of) liver, not elsewhere classified

== ENCOUNTER 2020-12-21 15:17 | Outpatient (CLI) | payer OTHER ==
--- NOTE | 2020-12-21 17:01 | DEXA Report ---
PROCEDURE: Dexa Spine and/or Hip INDICATIONS: POST MENOPAUSAL TECHNIQUE: Dual energy x-ray absorptiometry (DXA) was performed on a [email or web address] System. Regions measur ed are the AP Spine, femoral neck, and if needed forearm. COMPARISON: None. FINDINGS: Lumbar Spine: Bone Mineral Density 1.488 g/cm/cm,T score 2.6, normal bone density Left Femoral Neck: Bone Mineral Density 1.168 g/cm/cm, T score 1.3, normal bone density (T score greater or equal to -1.0: NORMAL) (T score from -1.1 to -2.4: OSTEOPENIA) (T score less than or equal to -2.5 to: OSTEOPOROSIS) Impression: Normal bone mineral density. Patients with diagnosis of osteoporosis or osteopenia should have regular bone mineral density assess ment. For those eligible for Medicare, routine testing is allowed once every 2 years. Testing frequ ency can be increased for patients who have rapidly progressing disease or for those who are receivin g medical therapy to restore bone mass. Reviewed by: Wilmar Flaherty MD on 12/21/2020 4:59 PM PDT Approved by: Wilmar Flaherty MD on 12/21/2020 4:59 PM PDT Station ID: [id number]
== END 2020-12-21 15:18 | disposition home or self-care (01) ==
LOC: DI 15:17
PROVIDERS: ATTEND Obstetrics & Gynecology
DX: Z78.0 Asymptomatic menopausal state (principal)

== ENCOUNTER 2021-04-27 08:40 | Day surgery (SDC) | payer OTHER ==
[2021-04-27] MEDS ORDERED: LACTATED RINGERS 1,000 ML IV ONE ×2 (09:25→11:26)
[2021-04-27] MEDS ORDERED: MIDAZOLAM 2 MG/2 ML VIAL ONE ×3 (10:39→11:03)
[2021-04-27] MEDS ORDERED: fentaNYL 250 MCG/5 ML VIAL ONE (10:39)
[2021-04-27 11:51] VITALS: BP 106/60
== END 2021-04-27 08:41 | disposition home or self-care (01) ==
LOC: SDS 08:40
PROVIDERS: ATTEND Surgery
PROC: 0DBP8ZZ Excision of Rectum, Via Natural or Artificial Opening Endoscopic (ICD-10-PCS; 2021-04-27)
PROC: 0DBN8ZZ Excision of Sigmoid Colon, Via Natural or Artificial Opening Endoscopic (ICD-10-PCS; principal; 2021-04-27 10:30)
DX: Z12.11 Encounter for screening for malignant neoplasm of colon (principal); D12.5 Benign neoplasm of sigmoid colon; K62.1 Rectal polyp; K57.30 Diverticulosis of large intestine without perforation or abscess without bleeding; K64.8 Other hemorrhoids; G47.30 Sleep apnea, unspecified; I10 Essential (primary) hypertension; E78.5 Hyperlipidemia, unspecified; K21.9 Gastro-esophageal reflux disease without esophagitis; G47.00 Insomnia, unspecified; Z87.891 Personal history of nicotine dependence; Z79.899 Other long term (current) drug therapy
CPT/HCPCS: 45380; 45385; J3010; J7120

== ENCOUNTER 2021-07-05 14:52 | Outpatient (CLI) | payer OTHER ==
--- NOTE | 2021-07-05 15:54 | XRAY Report ---
PROCEDURE: Lumbar Spine 2 View INDICATIONS: LUMBAR RADICULOPATHY TECHNIQUE: 3 views of the lumbar spine were acquired. COMPARISON: None. FINDINGS: Bones: 5 voc-kqk-zbbbccd vertebrae are present. There is there is trace retrolisthesis of L2 on L3, L3 on L4. Multilevel mild to moderate disc space narrowing is present. Mild to moderate foraminal na rrowing is present from L3-4 through L5-S1. No vertebral body compression fractures. No suspicious b waldemar lesions. Soft tissues: Overlying bowel gas pattern is normal. No suspicious soft tissue calcifications. IMPRESSION: Multilevel degenerative changes as above with foraminal narrowing most notable from L3-4 through L5-S1. MRI lumbar spine may be obtained for further evaluation of potential nerve root compr ession if clinical concern persists. Reviewed by: Niki Rogers MD on 07/05/2021 3:53 PM PDT Approved by: Niki Rogers MD on 07/05/2021 3:53 PM PDT Station ID: [id number]
--- NOTE | 2021-07-05 15:55 | XRAY Report ---
PROCEDURE: Hips 2V BILAT INDICATIONS: HIP PAIN TECHNIQUE: 2 views of the hip were acquired. COMPARISON: None FINDINGS: Bones: No fractures or dislocations. No suspicious bony lesions. The visualized pelvic ring appear s intact. Very minimal scattered early arthritic changes are noted within the hips and lumbar spine. Soft tissues: No suspicious soft tissue calcifications or masses. IMPRESSION: No acute osseous abnormality. Reviewed by: Niki Rogers MD on 07/05/2021 3:54 PM PDT Approved by: Niki Rogers MD on 07/05/2021 3:54 PM PDT Station ID: [id number]
== END 2021-07-05 14:53 | disposition home or self-care (01) ==
LOC: DI.S 14:52
PROVIDERS: ATTEND Nurse Practitioner Family
DX: M47.27 Other spondylosis with radiculopathy, lumbosacral region (principal); M25.552 Pain in left hip; M25.551 Pain in right hip

== ENCOUNTER 2021-12-09 08:00 | Outpatient (CLI) | payer MEDICARE, OTHER ==
--- NOTE | 2021-12-09 10:16 | XRAY Report ---
PROCEDURE: Finger(s) LT INDICATIONS: LEFT FINGER PAIN, 5TH DIGIT TECHNIQUE: AP hand, 3 views of the fifth finger(s) acquired. COMPARISON: August 10, 2018 FINDINGS: BONES: Thin calcific density along the ulnar, distal aspect of the fifth proximal phalanx, compatible with avulsion injury. The remaining visualized osseous structures appear maintained. The carpal bone s are normally aligned. SOFT TISSUES: Edema about the fifth PIP. IMPRESSION: 1.Small avulsion fracture involving the ulnar, distal aspect of the fifth proximal phalanx. Reviewed by: Jeffrey Lynn MD on 12/09/2021 10:15 AM PDT Approved by: Jeffrey Lynn MD on 12/09/2021 10:15 AM PDT Station ID: [id number]
== END 2021-12-09 23:59 | disposition home or self-care (01) ==
LOC: DI.S 08:00
PROVIDERS: ATTEND Physician Assistant
DX: S62.617A Displaced fracture of proximal phalanx of left little finger, initial encounter for closed fracture (principal)

== ENCOUNTER 2022-01-24 13:31 | Outpatient (CLI) | payer MEDICARE, OTHER ==
[2022-01-24 20:32] LABS: THYROID STIMULATING HORMONE 0.78 uIU/mL (0.34-5.60)
[2022-01-24 20:59] LABS: ESTIMATED AVERAGE GLUCOSE 131 mg/dL (70-100); HEMOGLOBIN A1c% 6.2 % (4.27-6.07)
== END 2022-01-24 13:32 | disposition home or self-care (01) ==
LOC: LAB.S 13:31
PROVIDERS: ATTEND Nurse Practitioner Family
DX: R94.6 Abnormal results of thyroid function studies (principal); R73.09 Other abnormal glucose
CPT/HCPCS: 36415; 83036; 84443

== ENCOUNTER 2022-04-12 07:41 | Outpatient (CLI) | payer MEDICARE, OTHER ==
--- NOTE | 2022-04-12 08:41 | Ultrasound Report ---
PROCEDURE: Aorta Screening INDICATIONS: [facility] HIST OF CARDIOVASCULAR DISEASE TECHNIQUE: Real time scanning was performed of the aorta and iliac arteries, with image documentatio n. COMPARISON: None FINDINGS: Aorta: Proximal aortic diameter measures 2.2 x 2.3 cm. Mid-aorta measures 1.7 x 1.7 cm. Distal aor tic diameter is 1.5 x 1.6 cm. Iliac arteries: Right common iliac artery measures 1.2 cm. Left common iliac artery measures 1.2 cm . IMPRESSION: Normal study. Reviewed by: Chidi Marquez MD on 04/12/2022 8:39 AM PDT Approved by: Chidi Marquez MD on 04/12/2022 8:39 AM PDT Station ID: [id number]
== END 2022-04-12 07:42 | disposition home or self-care (01) ==
LOC: DI 07:41
PROVIDERS: ATTEND Nurse Practitioner Family
DX: Z13.6 Encounter for screening for cardiovascular disorders (principal); Z82.49 Family history of ischemic heart disease and other diseases of the circulatory system

== ENCOUNTER 2022-04-12 07:42 | Outpatient (CLI) | payer MEDICARE, OTHER ==
--- NOTE | 2022-04-12 16:20 | Mammography Report ---
BILATERAL DIGITAL SCREENING MAMMOGRAM 3D/2D: 04/12/2022 CLINICAL: Routine screening. Comparison is made to exams dated: 04/21/2019 mammogram and 08/20/2017 mammogram - [facility]. There are scattered fibroglandular elements in both breasts. No significant masses, calcifications, or other findings are seen in either breast. There has been no significant interval change. IMPRESSION: NEGATIVE There is no mammographic evidence of malignancy. A 1 year screening mammogram is recommended. Based on the Tyrer Cuzick model (a risk assessment model) the patients lifetime risk is 5.3% and her 10 year risk is 2.5%. According to the ACR, ACS, and NCCN guidelines, an annual breast MRI exam yumiko g with mammogram is recommended if the patients lifetime risk is 20% or greater. This exam was interpreted at Station ID: [id number]. NOTE: For mammograms, a report in lay terms will be sent to the patient. Approximately 15% of breast malignancies will not be visualized mammographically. In the management of a palpable breast mass, a negative mammogram must not discourage biopsy of a clinically suspicious lesion. Electronically Signed By: Wilmar Flaherty M.D. aty/penrad:04/12/2022 09:59:23 ACR BI-RADS Category 1: Negative 3341F PARENCHYMAL PATTERN: (A) - The breast(s) demonstrate(s) scattered fibroglandular densities. BI-RADS CATEGORY: (1) - 1 RECOMMENDATION: (ANNUAL) - Recommend routine annual screening mammography. [id number] 1 year screening LATERALITY: (B)
== END 2022-04-12 07:43 | disposition home or self-care (01) ==
LOC: DI 07:42
PROVIDERS: ATTEND Nurse Practitioner Family
DX: Z12.31 Encounter for screening mammogram for malignant neoplasm of breast (principal)

== ENCOUNTER 2023-11-20 10:49 | Outpatient (CLI) | payer MEDICARE, OTHER ==
--- NOTE | 2023-11-21 09:43 | Mammography Report ---
BILATERAL DIGITAL SCREENING MAMMOGRAM 3D/2D: 11/20/2023 CLINICAL: Routine screening. Comparison is made to exams dated: 04/12/2022 mammogram, 04/21/2019 mammogram, and 08/20/2017 mammogra m - [facility]. There are scattered areas of fibroglandular density in both breasts (category b / 25%-50% glandular t issue). No significant masses, calcifications, or other findings are seen in either breast. There has been no significant interval change. IMPRESSION: NEGATIVE There is no mammographic evidence of malignancy. A 1 year screening mammogram is recommended. Based on the Tyrer Cuzick model (a risk assessment model) the patient's lifetime risk is 8.9% and her 10 year risk is 4.7%. According to the ACR, ACS, and NCCN guidelines, an annual breast MRI exam yumiko g with mammogram is recommended if the patient's lifetime risk is 20% or greater. This exam was interpreted at Station ID: [id number]. NOTE: For mammograms, a report in lay terms will be sent to the patient. Approximately 15% of breast malignancies will not be visualized mammographically. In the management of a palpable breast mass, a negative mammogram must not discourage biopsy of a clinically suspicious lesion. Electronically Signed By: Devin escobar/stefania:11/20/2023 12:39:01 letter sent: No_Letter ACR BI-RADS Category 1: Negative 3341F PARENCHYMAL PATTERN: (A) - The breast(s) demonstrate(s) scattered fibroglandular densities. BI-RADS CATEGORY: (1) - 1 Mammogram [id number] 1 year screening LATERALITY: (B)
== END 2023-11-20 10:50 | disposition home or self-care (01) ==
LOC: DI 10:49
PROVIDERS: ATTEND Registered Nurse
DX: Z12.31 Encounter for screening mammogram for malignant neoplasm of breast (principal); R92.323 Mammographic fibroglandular density, bilateral breasts